=== PATIENT | male | born 1955 | race Caucasian/White ===

== ENCOUNTER 2019-09-29 08:24 | Inpatient (IN) | payer MEDICARE, BC ==
[2019-09-24 12:22] LABS: BASOPHILS % (AUTO) 0.6 % (0-1); EOSINOPHILS # (AUTO) 0.1 X10'3 (0-0.9); EOSINOPHILS % (AUTO) 1.8 % (0-6); LYMPHOCYTES % (AUTO) 14.5 % (21-51); MEAN CORPUSCULAR HEMOGLOBIN 32.3 PG (27.0-31.0); MEAN CORPUSCULAR VOLUME 95.2 FL (78-98); MEAN PLATELET VOLUME 8.5 FL (7.4-10.4); MONOCYTES # (AUTO) 0.5 X10'3 (0-0.9); MONOCYTES % (AUTO) 6.9 % (2-12); NEUTROPHILS # (AUTO) 5.4 X10'3 (1.8-7.7); NEUTROPHILS % (AUTO) 76.2 % (42-75); PRE OP HEMATOCRIT 43.3 % (42.0-52.0); PRE OP HEMOGLOBIN 14.7 g/dL (14.0-17.9); PRE OP PLATELET COUNT 228 X10'3 (140-440); RED BLOOD COUNT 4.54 X10'6 (4.70-6.10); RED CELL DISTRIBUTION WIDTH 14.2 % (11.5-14.5)
[2019-09-24 12:34] LABS: PRE OP PROTIME 10.2 SECONDS (9.0-12.0)
[2019-09-24 12:35] LABS: BLOOD UREA NITROGEN 16 MG/DL (7-18); BUN/CREATININE RATIO 17.2 (5.4-32.0); CALCIUM 9.2 MG/DL (8.5-10.1); CHLORIDE 105 MMOL/L (99-107); CREATININE 0.93 MG/DL (0.60-1.10); PRE OP ANION GAP 8 (8-16); PRE OP BILIRUB, TOTAL 0.6 MG/DL (0.0-1.0); PRE OP GLUCOSE 93 MG/DL (70-104); PRE OP POTASSIUM 3.9 MMOL/L (3.4-5.1); PRE OP SODIUM 140 MMOL/L (135-145); TOTAL CARBON DIOXIDE 27.4 MMOL/L (24-32); TOTAL PROTEIN 7.3 G/DL (6.4-8.2); eGFR 81 ML/MIN
[2019-09-24 12:36] LABS: ALBUMIN 3.9 G/DL (3.4-5.0); ALBUMIN/GLOBULIN RATIO 1.1 (1.1-1.5); ALKALINE PHOSPHATASE 59 IU/L (46-116); PRE OP ALT 36 U/L (30-65); PRE OP AST 24 U/L (10-37)
[2019-09-29] VITALS (15 sets, daily range): BP systolic 124–156; BP diastolic 73–93
[~2019-09-29] VITALS: Ht 175.3 cm; Wt 89.2 kg
[~2019-09-29 08:24] MED LIST: ATOR40TA PO; BAC10T PO; CELE-193 PO; DOXY100C55 PO; EZET10TA21 PO; PANT-47 PO; cefazolin/dext.iso 2gm/100ml 100 ML IV ONE; famotidine 20mg tablet PO ONE; ringers solution, lacted 1,000 ML IV SCH; tranexamic acid inj. 860 MG in normal saline 100ml IV soln 100 ML IV ONE; vancomycin inj 1,500 MG in normal saline 300ml IV soln IV ONE
[2019-09-29 10:37] LABS: PARTIAL THROMBOPLASTIN TIME 37 SECONDS (22-32)
[2019-09-29] MEDS ORDERED: ringers solution, lacted 1,000 ML IV SCH (13:11)
[2019-09-29] MEDS ORDERED: ROPIVAcaine 0.2%/PF PUMP/bolus 550 ML INTERSCALE SCH (13:13)
[2019-09-29] MEDS ORDERED: labetalol 20mg/4ml (5mg/ml) syringe IV PRN (13:15)
[2019-09-29] MEDS ORDERED: ondansetron/PF 4mg/2ml inj IV PRN ×2 (13:15→17:00)
[2019-09-29] MEDS ORDERED: ROPIVAcaine 0.2% (10 MG/5 ML) BOLUS INJECTION INTERSCALE PRN (13:15)
[2019-09-29] MEDS ORDERED: fentaNYL/PF 50MCG/1 ML 2ML syringe IV PRN ×2 (13:15)
[2019-09-29] MEDS ORDERED: morphine 4 MG/ML inj SYRINge IV PRN ×2 (13:15)
[2019-09-29] MEDS ORDERED: hydrALAZINE 20mg/ml inj. IV PRN (13:15)
[2019-09-29] MEDS ORDERED: ROPIVAcaine 0.5% (5mg/ml) 30ml vial ONE ×2 (13:59→14:38)
[2019-09-29] MEDS ORDERED: ketorolac trometh. 30mg/ml inj. ONE (13:59)
[2019-09-29] MEDS ORDERED: LIDOcaine 2% (20mg/ml) 5ml vial ONE (14:40)
[2019-09-29] MEDS ORDERED: propofol inj 20 ML IV ONE (14:40)
[2019-09-29] MEDS ORDERED: dexamethasone sod phosphate 10mg/ml inj ONE (14:49)
[2019-09-29] MEDS ORDERED: sevoflurane 250ml liquid IH ONE (14:49)
[2019-09-29] MEDS ORDERED: fentaNYL/PF 50MCG/1 ML 2ML syringe ONE ×2 (15:26→16:11)
[2019-09-29] MEDS ORDERED: ondansetron/PF 4mg/2ml inj ONE (15:30)
--- NOTE | 2019-09-29 16:57 | NUR ---
Received from OR via BED, accompanied by Anesthesiologist DR SERNA and report given by Anesthesiologist. PT AWAKE, DENIES PAIN, RIGHT SHOULDER W/DRSG CDI, SHOULDER WRAP, ICE PACK. Addendum: 09/29/19 at 1734 by Yodit Dunn RN Amended: Links added.
[2019-09-29] MEDS ORDERED: oxyCODONE IR 5mg (immed. release) tablet PO PRN ×2 (17:00)
[2019-09-29] MEDS ORDERED: HYDROmorphone inj. 0.5 MG/0.5 ML DISP.SYRIN IV PRN (17:00)
[2019-09-29] MEDS ORDERED: bisacodyl 10mg suppository rectal RC PRN (17:00)
[2019-09-29] MEDS ORDERED: HYDROmorphone 1 mg/ml syringe IV PRN (17:00)
[2019-09-29] MEDS ORDERED: acetaminophen 325mg tablet PO PRN (17:00)
[2019-09-29] MEDS ORDERED: diphenhydrAMINE 25mg capsule PO PRN ×2 (17:00)
[2019-09-29] MEDS ORDERED: baclofen 10mg tablet PO PRN (17:00)
[2019-09-29] MEDS ORDERED: magnesium hydroxide 30ml (MOM) UD suspension PO PRN (17:00)
--- NOTE | 2019-09-29 17:47 | NUR ---
Report called to receiving nurse. Transferred via BED, 1 BAG OF PERSONAL Belongings, 1 LARGE DUFFLE BAG, GLASSES SENT W/PT TO ROOM 4021B, MEDICAL PHYSICS TEACHER AT BEDSIDE TO RECEIVE PT, BLL, CALL LIGHT GIVEN, SIDE RAILS UP X 2. Special Issues communicated to receiving nurse. YES. Addendum: 09/29/19 at 1759 by Yodit Dunn RN Amended: Links added.
[2019-09-29] MEDS ORDERED: tranexamic acid inj. 890 MG in normal saline 100ml IV soln 100 ML IV ONE (20:00)
[2019-09-29] MEDS ORDERED: vancomycin/NS 1 GM ADD-VANTAGE 250 ML IV SCH (20:00)
[2019-09-29] MEDS: celeCOXIB 100mg capsule PO SCH (20:14)
[2019-09-29] MEDS: acetaminophen 325mg tablet PO SCH (20:14)
[2019-09-29] MEDS: potassium cl 20mEq in 1/2 NS 1,000 ML IV SCH (20:27)
[2019-09-29] MEDS ORDERED: sennosides 8.6mg tablet PO SCH (21:00)
[2019-09-30] MEDS: ceFAZolin 1GM/D5W- ADD-VANTAGE 50 ML IV SCH ×2 (00:13→07:21)
[2019-09-30] MEDS: potassium cl 20mEq in 1/2 NS 1,000 ML IV SCH (00:57)
[2019-09-30 02:00] VITALS: BP 112/64
[2019-09-30] MEDS: acetaminophen 325mg tablet PO SCH ×2 (02:00→07:20)
[2019-09-30 05:51] LABS: BASOPHILS % (AUTO) 0.4 % (0-1); EOSINOPHILS % (AUTO) 0.1 % (0-6); HEMATOCRIT 39.6 % (42.0-52.0); HEMOGLOBIN 13.6 g/dl (14.0-17.9); LYMPHOCYTES # (AUTO) 0.6 X10'3 (1.1-4.8); MEAN CORPUSCULAR HEMOGLOBIN 32.6 PG (27.0-31.0); MEAN CORPUSCULAR HGB CONC 34.4 g/dL (33.0-36.5); MEAN CORPUSCULAR VOLUME 94.5 FL (78-98); MEAN PLATELET VOLUME 9.1 FL (7.4-10.4); MONOCYTES # (AUTO) 0.4 X10'3 (0-0.9); MONOCYTES % (AUTO) 4.5 % (2-12); PLATELET COUNT 219 X10'3 (140-440); RED BLOOD COUNT 4.19 X10'6 (4.70-6.10); RED CELL DISTRIBUTION WIDTH 14.2 % (11.5-14.5); WHITE BLOOD COUNT 9.1 X10'3 (4.5-11.0)
[2019-09-30 06:00] VITALS: BP 119/55
--- NOTE | 2019-09-30 06:07 | NUR ---
REPORT GIVEN TO PATRICIA MALAGON.
[2019-09-30 06:09] LABS: ANION GAP 11 (8-16); CHLORIDE 105 MMOL/L (99-107); POTASSIUM 4.4 MMOL/L (3.5-5.1); SODIUM 137 MMOL/L (135-145); TOTAL CARBON DIOXIDE 21.1 MMOL/L (24-32)
--- NOTE | 2019-09-30 06:11 | NUR ---
RECEIVED REPORT FROM PATRICIA VELOZ
[2019-09-30] MEDS: celeCOXIB 100mg capsule PO SCH (07:17)
[2019-09-30] MEDS ORDERED: ezetimibe 10mg tablet PO SCH (08:00)
[2019-09-30] MEDS ORDERED: DOXYCYCLINE 100MG CAPSULE PO SCH (08:00)
[2019-09-30] MEDS ORDERED: atorvastatin 20mg tablet PO SCH (08:00)
[2019-09-30] MEDS ORDERED: pantoprazole 40mg Tablet.DR PO SCH (08:00)
[2019-09-30] MEDS ORDERED: aspirin 325mg tablet PO SCH (08:30)
--- NOTE | 2019-09-30 10:12 | NUR ---
pt d/c with instructions understanding of instructions and w/all belongings and w/all belongings in whe[place]air to private vehicle to go home and f/up w/surgeon
[2019-10-01] MEDS ORDERED: acetaminophen 325mg tablet PO PRN (17:00)
== END 2019-09-30 10:15 | disposition home or self-care (01) | DRG 483 ==
LOC: PAS IN 08:24 → EDSTATUS 14:00 → ORTHO 4S 17:50
PROVIDERS: ADMIT Orthopaedic Surgery; ATTEND Orthopaedic Surgery
PROC: 0LS30ZZ Reposition Right Upper Arm Tendon, Open Approach (ICD-10-PCS; 2019-09-29)
PROC: 3E0T3BZ Introduction of Anesthetic Agent into Peripheral Nerves and Plexi, Percutaneous Approach (ICD-10-PCS; 2019-09-29)
PROC: 0RRJ00Z Replacement of Right Shoulder Joint with Reverse Ball and Socket Synthetic Substitute, Open Approach (ICD-10-PCS; principal; 2019-09-29 14:49)
DX: M19.011 Primary osteoarthritis, right shoulder (principal); D62 Acute posthemorrhagic anemia; M25.511 Pain in right shoulder; M75.121 Complete rotator cuff tear or rupture of right shoulder, not specified as traumatic; E78.5 Hyperlipidemia, unspecified; J45.909 Unspecified asthma, uncomplicated; I10 Essential (primary) hypertension; K21.9 Gastro-esophageal reflux disease without esophagitis; Z87.891 Personal history of nicotine dependence; Z72.89 Other problems related to lifestyle; Z79.899 Other long term (current) drug therapy
CPT/HCPCS: 36415; 80051; 80053; 82948; 85025; 85610; 85730; 87081; 97161; 97530; A4565; A4618; A7000; C1776; G0378; J0690; J1100; J1885; J2001; J2405; J2704; J2795; J3010; J3370; J3480; J7120